=== PATIENT | male | born 1940 | race Caucasian/White ===

== ENCOUNTER 2019-11-12 05:31 | Day surgery (SDC) | payer MEDICARE ==
[2019-11-12] VITALS (7 sets, daily range): BP systolic 140–151; BP diastolic 75–82; PULSE 63–80; TEMP 97.5–98.3
[~2019-11-12] VITALS: Ht 185.4 cm; Wt 146.2 kg
[~2019-11-12 05:31] MED LIST: ASPIRIN 81M81 MG/TA2 PO; CALCIUM 500 + D1 TA2 PO; FISH OIL500 MG PO; GARLIC SUPPLEM300 MG; GINSENG1 TAB PO; LEVAQUIN 5500 MG/TA1 PO; NORVASC 5MG5 MG/TAB PO; PRINZIDE 25 MG-1 TAB PO; VITAMINC1000TA; ZOCOR5 MG PO
[2019-11-12] MEDS ORDERED: ASPIRIN 81M81 MG/TA2 PO (06:31)
[2019-11-12] MEDS ORDERED: CALCIUM CARBON650 M2 PO (06:32)
[2019-11-12] MEDS ORDERED: LASIX 40MG TABL40 MG PO (06:32)
[2019-11-12] MEDS ORDERED: GARLIC100 MG PO (06:33)
[2019-11-12] MEDS ORDERED: NATURE'S BLEN1200 MG PO (06:33)
[2019-11-12] MEDS ORDERED: PRINIVIL20 MG PO (06:34)
[2019-11-12] MEDS ORDERED: TOPROL XL 25MG25 MG PO (06:35)
[2019-11-12] MEDS ORDERED: GINSENG PO ×2 (06:36→06:45)
[2019-11-12] MEDS ORDERED: MULTIPLE VITAMI1 TA1 PO (06:47)
[2019-11-12] MEDS ORDERED: ALEVE 220MG220 MG PO (06:47)
[2019-11-12] MEDS ORDERED: OMEGA-3 1000 MG1 CAP PO (06:48)
[2019-11-12] MEDS ORDERED: VITAMIN C500 MG PO (06:49)
[2019-11-12] MEDS ORDERED: ZOCOR5 MG PO (06:49)
--- NOTE | 2019-11-12 11:27 | NUR ---
PATIENT TO ROOM 343 PER BED WITH [facility]. REPORT FROM LALITHA @ [id number]. PT IS A/O X3, REGULAR IRREGULAR HR. DRESSING TO LEFT SHOULDER CDI WITH AQUACEL OVER INCISION. PT'S AT BEDSIDE. DISCHARGE ORDERS INPLACE.
--- NOTE | 2019-11-12 16:01 | NUR ---
CHANGED DRESSING X2 WITH DRESSINGS BECOMMING SATURATED. AFTER LAST CHANGE OOZING APPEARS TO HAVE SUBSIDED. PT TAKEN OUT WITH WHEEL CHAIR.
== END 2019-11-12 15:00 | disposition home or self-care (01) ==
LOC: SDCO 05:31 → SURG 11:00 → SDCO 15:00
DX: M75.122 Complete rotator cuff tear or rupture of left shoulder, not specified as traumatic (principal); I50.9 Heart failure, unspecified; I11.0 Hypertensive heart disease with heart failure; E78.00 Pure hypercholesterolemia, unspecified; Z53.33 Arthroscopic surgical procedure converted to open procedure; Z79.82 Long term (current) use of aspirin; Z79.899 Other long term (current) drug therapy; Z68.41 Body mass index [BMI] 40.0-44.9, adult
CPT/HCPCS: OP; A4619; C1713; J0171; J0690; J1100; J1885; J2250; J2405; J2704; J2795; J3010; J7120

== ENCOUNTER 2019-11-14 16:42 | Emergency (ER) | payer MEDICARE ==
[~2019-11-14] VITALS: Ht 185.4 cm; Wt 145.5 kg
[~2019-11-14 16:42] MED LIST changes: +ALEVE 220MG220 MG PO; +CALCIUM CARBON650 M2 PO; +GARLIC100 MG PO; +GINSENG PO; +LASIX 40MG TABL40 MG PO; +MULTIPLE VITAMI1 TA1 PO; +NATURE'S BLEN1200 MG PO; +OMEGA-3 1000 MG1 CAP PO; +PRINIVIL20 MG PO; +TOPROL XL 25MG25 MG PO; +VITAMIN C500 MG PO
[2019-11-14 17:14] VITALS: TEMP 97.1
[2019-11-14 18:48] LABS: BASO # 0.1 (0.0-0.2); BASO % 0.5 % (0.0-2.0); EOS # 0.4 (0.0-0.7); EOS % 4.4 % (0-4.0); GRAN # 6.3 (1.4-6.5); GRAN % 63.9 % (42.2-75.2); HEMATOCRIT 40.3 % (42.0-52.0); HEMOGLOBIN 13.2 g/dl (13.5-18.0); LYMPH % 19.9 % (20.0-51.0); MEAN CELL VOLUME 94 fl (80.0-100.0); MEAN CORPUSCULAR HEMOGLOBIN 31 pg (27.0-31.0); MEAN CORPUSCULAR HGB CONC 33 g/dl (33.0-37.0); MEAN PLATELET VOLUME 9.4 fl (7.4-10.4); MONO # 1.1 (0.1-0.6); MONO % 10.9 % (1.7-9.3); PLATELET COUNT 318 K/mm3 (130-400); RED BLOOD COUNT 4.29 M/mm3 (4.20-5.60); REDCELL DISTRIBUTION WIDTH-CV 14.1 % (11.5-14.5)
[2019-11-14 19:01] LABS: BILIRUBIN,TOTAL 0.6 mg/dL (0.0-1.0); C-REACTIVE PROTEIN 1.9 mg/dL (0.0-0.9); CALCIUM 8.6 mg/dL (8.4-10.2); CREATININE, serum 0.78 (0.66-1.25); POTASSIUM 4.8 mmol/L (3.4-5.0); TOTAL PROTEIN 7.2 gm/dL (6.4-8.2)
[2019-11-14 19:30] VITALS: BP 152/80; PULSE 83
== END 2019-11-14 19:33 | disposition home or self-care (01) ==
LOC: COL.ER 16:42
PROVIDERS: Emergency Medicine
DX: G89.18 Other acute postprocedural pain (principal); M25.512 Pain in left shoulder; I10 Essential (primary) hypertension; Z79.82 Long term (current) use of aspirin